=== PATIENT | female | born 1980 | race Caucasian/White ===

== ENCOUNTER 2021-09-29 16:23 | Inpatient (IN) | payer OTHER ==
[~2021-09-29] VITALS: Ht 160 cm; Wt 125.8 kg
[2021-09-29] MEDS ORDERED: ADENOSINE 6 MG/2 ML VIAL. IV ONE (16:48)
--- NOTE | 2021-09-29 17:18 | RAD ---
AP chest. HISTORY: Tachycardia AP view was taken of the chest. Heart is normal in size. There is no pleural effusion. There are no c onfluent infiltrates. IMPRESSION: 1. No acute chest disease. Electronically signed by: Tato Wan MD (09/29/2021 5:15 PM) [id number]
[2021-09-29 17:23] LABS: BASO # 0.1 x10^3/uL (0.0-0.2); BASO % 1 % (0-3); EOS # 0.1 x10^3/uL (0.0-0.7); EOS % 1 % (0-3); HEMATOCRIT 45.6 % (36.0-47.0); HEMOGLOBIN 15.2 g/dL (12.0-15.5); LYMPH % 28 % (24-48); MEAN CORPUSCULAR HEMOGLOBIN 28 pg (25-35); MEAN CORPUSCULAR HGB CONC 33 g/dL (31-37); MEAN CORPUSCULAR VOLUME 85 fL (79-100); MONO # 0.9 x10^3/uL (0.0-1.1); MONO % 9 % (0-9); NEUT # 6.8 x10^3/uL (1.8-7.7); NEUT % 62 % (31-73); PLATELET COUNT 268 x10^3/uL (140-400); RED BLOOD COUNT 5.35 x10^6/uL (3.50-5.40); RED CELL DISTRIBUTION WIDTH 13.7 % (11.5-14.5); WHITE BLOOD COUNT 10.9 x10^3/uL (4.0-11.0)
[2021-09-29 17:24] LABS: CALCIUM 9.3 mg/dL (8.5-10.1); GFR 60.5; POTASSIUM 3.6 mmol/L (3.5-5.1)
[2021-09-29 17:30] LABS: ALBUMIN 4.3 g/dL (3.4-5.0); MAGNESIUM 1.9 mg/dL (1.8-2.4); TOTAL BILIRUBIN 0.8 mg/dL (0.2-1.0); TOTAL PROTEIN 8.5 g/dL (6.4-8.2)
[2021-09-29] MEDS ORDERED: NORMAL SALINE IV ONE (17:30)
[2021-09-29] MEDS ORDERED: PROCAINAMIDE HCL IV ONE (17:30)
[2021-09-29 17:52] LABS: BARBITURATES NEG (NEG); BENZODIAZEPINES NEG (NEG); CANNABINOIDS POS (NEG); COCAINE NEG (NEG); METHADONE NEG (NEG); OPIATES NEG (NEG); PHENCYCLIDINE NEG (NEG)
[2021-09-29 17:55] LABS: BACTERIA,URINE MODERATE /HPF (0-FEW); RBC,URINE 0 /HPF (0-2); WBC,URINE OCC /HPF (0-4)
[2021-09-29] MEDS ORDERED: NS IV PRN (18:00)
[2021-09-29] MEDS ORDERED: PROCAINAMIDE IV PRN (18:00)
[2021-09-29 18:02] LABS: AMPHETAMINE/METHAMPHETAMINE NEG (NEG)
--- NOTE | 2021-09-29 18:55 | PHYS DOC ---
Past Medical History Past Medical History: No Pertinent History Additional Past Medical Histor: insomnia Past Surgical History: Other Additional Past Surgical Histo: D&C Smoking Status: Former Smoker Alcohol Use: None Drug Use: None General Adult EDM: Chief Complaint: RAPID HEART RATE HPI: HPI: Patient is a 41-year-old female who presents to the emergency department complaining of a rapid heart rate for the past 2 months. Patient states when she told her today he checked her pulse and it was very rapid, patient seen her primary care physician Dr. Peters who told her to come to the emergency department for evaluation of her rapid heart rate, treatment, admission and evaluation by a differential specialist. Patient denies chest pains, denies shortness of breath, denies chest or nasal congestion, denies nausea, vomiting, diarrhea, denies diaphoretic episodes, states she does not smoke, does not drink alcohol, denies illicit drug use Review of Systems: Review of Systems: 14 body systems of review of systems have been reviewed. See HPI for pertinent positives and negative responses, otherwise all other systems are negative, nonpertinent or noncontributory. Constitutional: Negative except as outlined in HPI above. Skin: Negative except as outlined in HPI above. Eyes: Negative except as outlined in HPI above. HENT: Negative except as outlined in HPI above. Respiratory: Negative except as outlined in HPI above. Cardiovascular: Negative except as outlined in HPI above. GI: Negative except as outlined in HPI above. : Negative except as outlined in HPI above. Musculoskeletal: Negative except as outlined in HPI above. Integument: Negative except as outlined in HPI above. Neurologic: Negative except as outlined in HPI above. Endocrine: Negative except as outlined in HPI above. Lymphatic: Negative except as outlined in HPI above. Psychiatric: Negative except as outlined in HPI above. Heart Score: C/O Chest Pain: No Risk Factors: Risk Factors: DM, Current or recent (<one month) smoker, HTN, HLP, family history of CAD, obesity. Risk Scores: Score 0 - 3: 2.5% MACE over next 6 weeks - Discharge Home Score 4 - 6: 20.3% MACE over next 6 weeks - Admit for Clinical Observation Score 7 - 10: 72.7% MACE over next 6 weeks - Early Invasive Strategies Current Medications: Current Medications Medications (Trade) Dose Ordered Sig/Rosa Elena Start Time Stop Time Status Last Admin Dose Admin Adenosine (Adenocard) 6 mg STK-MED ONCE 09/29/21 16:48 09/29/21 16:49 DC Diltiazem HCl (Cardizem Iv Push) 10 mg 1X ONCE 09/29/21 17:30 09/29/21 17:31 DC 09/29/21 17:03 10 MG Procainamide HCl 1250 mg/Sodium Chloride 112.5 ml @ 225 mls/hr 1X ONCE 09/29/21 17:30 09/29/21 17:59 DC 09/29/21 17:45 225 MLS/HR Procainamide HCl 2000 mg/Sodium Chloride 270 ml @ 7.5 mls/hr CONT PRN 09/29/21 18:00 Allergies: Allergies: Allergies Coded Allergies Type Severity Reaction Last Updated Verified No Known Drug Allergies 08/31/13 No Physical Exam: PE: Constitutional: Well developed, well nourished, no acute distress, non-toxic appearance. 41-year-old female in no apparent distress. HENT: Normocephalic, atraumatic. Eyes: Conjunctiva normal, no discharge. Neck: Normal range of motion, no stridor. Cardiovascular: No cyanosis appreciated, distal cap refill less than 2 seconds. Rapid heart rate for auscultation. Lungs & Thorax: Patient is in no respiratory distress, no audible adventitious lung sounds appreciated. Lung sounds clear to auscultation all lung perez. Abdomen: Nontender, no abnormalities noted. Skin: Warm, dry, no erythema, no rash. Back: No tenderness, no deformities. Extremities: No tenderness, no cyanosis, no clubbing, ROM intact, no edema. Neurologic: Alert and oriented X 3, normal motor function, normal sensory function, no focal deficits noted. Psychologic: Affect normal, judgement normal, mood normal. Current Patient Data: Labs: Laboratory Tests Test 09/29/21 16:50 09/29/21 17:30 09/29/21 17:36 White Blood Count 10.9 x10^3/uL (4.0-11.0) Red Blood Count 5.35 x10^6/uL (3.50-5.40) Hemoglobin 15.2 g/dL (12.0-15.5) Hematocrit 45.6 % (36.0-47.0) Mean Corpuscular Volume 85 fL (79-100) Mean Corpuscular Hemoglobin 28 pg (25-35) Mean Corpuscular Hemoglobin Concent 33 g/dL (31-37) Red Cell Distribution Width 13.7 % (11.5-14.5) Platelet Count 268 x10^3/uL (140-400) Neutrophils (%) (Auto) 62 % (31-73) Lymphocytes (%) (Auto) 28 % (24-48) Monocytes (%) (Auto) 9 % (0-9) Eosinophils (%) (Auto) 1 % (0-3) Basophils (%) (Auto) 1 % (0-3) Neutrophils # (Auto) 6.8 x10^3/uL (1.8-7.7) Lymphocytes # (Auto) 3.0 x10^3/uL (1.0-4.8) Monocytes # (Auto) 0.9 x10^3/uL (0.0-1.1) Eosinophils # (Auto) 0.1 x10^3/uL (0.0-0.7) Basophils # (Auto) 0.1 x10^3/uL (0.0-0.2) Sodium Level 136 mmol/L (136-145) Potassium Level 3.6 mmol/L (3.5-5.1) Chloride Level 100 mmol/L (98-107) Carbon Dioxide Level 26 mmol/L (21-32) Anion Gap 10 (6-14) Blood Urea Nitrogen 16 mg/dL (7-20) Creatinine 1.0 mg/dL (0.6-1.0) Estimated GFR (Cockcroft-Gault) 60.5 BUN/Creatinine Ratio 16 (6-20) Glucose Level 110 mg/dL (70-99) H Calcium Level 9.3 mg/dL (8.5-10.1) Magnesium Level 1.9 mg/dL (1.8-2.4) Total Bilirubin 0.8 mg/dL (0.2-1.0) Aspartate Amino Transferase (AST) 39 U/L (15-37) H Alanine Aminotransferase (ALT) 98 U/L (14-59) H Alkaline Phosphatase 69 U/L (46-116) Troponin I High Sensitivity 5 ng/L (4-50) WA-Guk-C-Type Natriuretic Peptide 96 pg/mL (0-124) Total Protein 8.5 g/dL (6.4-8.2) H Albumin 4.3 g/dL (3.4-5.0) Albumin/Globulin Ratio 1.0 (1.0-1.7) Thyroid Stimulating Hormone (TSH) 3.082 uIU/mL (0.358-3.74) Urine Collection Type Unknown Urine Color (Auto) Colorless Urine Turbidity Clear Urine pH (Auto) 6.0 (<5.0-8.0) Urine Specific [place] 1.006 (1.000-1.030) Urine Protein (Auto) Negative mg/dL (Negative) Urine Glucose (Auto)(UA) Negative mg/dL (Negative) Urine Ketones (Auto) Negative mg/dL (Negative) Urine Blood (Auto) Negative (Negative) Urine Nitrite Negative (Negative) Urine Bilirubin (Auto) Negative (Negative) Urine Urobilinogen (Auto) Normal mg/dL (Normal) Urine Leukocyte Esterase (Auto) Negative (Negative) Urine RBC 0 /HPF (0-2) Urine WBC Occ /HPF (0-4) Urine Squamous Epithelial Cells Many /LPF Urine Bacteria Moderate /HPF (0-FEW) Urine Opiates Screen Neg (NEG) Urine Methadone Screen Neg (NEG) Urine Barbiturates Neg (NEG) Urine Phencyclidine Screen Neg (NEG) Urine Amphetamine/Methamphetamine Neg (NEG) Urine Benzodiazepines Screen Neg (NEG) Urine Cocaine Screen Neg (NEG) Urine Cannabinoids Screen Pos (NEG) Urine Ethyl Alcohol Neg (NEG) POC Urine HCG, Qualitative Hcg negative (Negative) Laboratory Tests 09/29/21 16:50 Laboratory Tests 09/29/21 16:50 Vital Signs: Vital Signs Date Time Temp Pulse Resp B/P (MAP) Pulse Ox O2 Delivery O2 Flow Rate FiO2 09/29/21 17:26 168 147/103 (118) 96 Room Air 09/29/21 16:34 98.7 20 98.7 EKG: EKG: EKG performed at 1641 by ED nursing staff shows a supraventricular tachycardia, heart rate 172 bpm, QTc interval 0.495, no acute STEMI, EKG interpreted by ED attending physician Dr. Herrera. Radiology/Procedures: Radiology/Procedures: REASON: Tachycardia PROCEDURE: CHEST AP ONLY AP chest. HISTORY: Tachycardia AP view was taken of the chest. Heart is normal in size. There is no pleural effusion. There are no confluent infiltrates. IMPRESSION: 1. No acute chest disease. Electronically signed by: Tato Wan MD (09/29/2021 5:15 PM) [id number] Course & Med Decision Making: Course & Med Decision Making Pertinent Labs and Imaging studies reviewed. (See chart for details) 41-year-old female, vital signs reviewed, presents emerged department concerning rapid heart rate for the past 2 months. Physical examination concerning for rapid heart rate for auscultation of heart sounds. Otherwise patient is in no distress, and is unremarkable. Will order EKG, chest x-ray, CBC, CMP, urinalysis assay, urine drug screen, high-sensitivity troponin I, NT proBNP, urine test. Magnesium level. EKG concerning for supraventricular tachycardia, discussed patient case and presentation with ED attending physician Dr. Herrera who recommended procainamide bolus and lieu of adenosine to related to symptoms for 2 months. Procainamide bolus has been ordered. Patient's labs are unremarkable, heart rate has reduced down to 150 bpm, called and presented ED work-up and patient case to differential specialist Dr. Bolanos who reviewed patient's EKG, recommended stopping the procainamide and starting Cardizem drip. Procainamide stopped, Cardizem maintenance drip ordered. Called and discussed patient case and ED work-up along with Dr. Bolanos recommendations with patient's primary care physician Dr. Peters who agrees patient meets criteria for admission on telemetry unit, Dr. Peters requested patient's home medications to be ordered. Patient is currently awaiting telemetry unit bed, remains in no apparent distress at time of ED admission to telemetry unit. Prakash Disclaimer: Prakash Disclaimer: This electronic medical record was generated, in whole or in part, using a voice recognition dictation system. Departure Departure Impression: Primary Impression: PSVT (paroxysmal supraventricular tachycardia) Additional Impression: Heart palpitations Disposition: ADMITTED INPATIENT Admitting Physician: Oleksandr Peters (Admit to telemetry unit, consult cardiology.) Condition: GUARDED Referrals: OLEKSANDR PETERS MD (PCP) DAVEY BARROS APRN Sep 29, 2021 18:55
[2021-09-29] MEDS ORDERED: ACETAMINOPHEN 325 MG TABLET. PO PRN (19:00)
[2021-09-29] MEDS ORDERED: ONDANSETRON PF 4 MG/2 ML VIAL. IVP PRN (19:00)
[2021-09-29 21:00] VITALS: BP 143/87
[2021-09-29] MEDS ORDERED: LORA-434 PO ×2 (21:08)
[2021-09-29] MEDS ORDERED: TEMA30CA PO (21:08)
[2021-09-29] MEDS ORDERED: TRAZ150T49 PO (21:08)
[2021-09-29 21:30] VITALS: BP 145/106
--- NOTE | 2021-09-29 21:42 | EKG ---
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
[2021-09-29 22:00] VITALS: BP 140/87
[2021-09-29] MEDS ORDERED: METOPROLOL IV PUSH 5 MG/5 ML VIAL. IVP ONE (22:00)
[2021-09-29] MEDS: TEMAZEPAM 15 MG CAPSULE PO PRN (22:11)
[2021-09-29] MEDS: traZODone 100 MG TABLET. PO SCH (22:12)
[2021-09-29 22:40] VITALS: BP 139/85
[2021-09-29 23:10] VITALS: BP 130/75
[2021-09-29 23:30] VITALS: BP 113/71
[2021-09-30] VITALS (14 sets, daily range): BP systolic 100–139; BP diastolic 57–95
--- NOTE | 2021-09-30 06:08 | HP ---
DATE OF SERVICE: 09/29/2021 ADMIT DATE: 09/29/2021 CHIEF COMPLAINT: Tachycardia. HISTORY OF PRESENT ILLNESS: A 41-year-old white female who came to our office on the day of admission as a walk-in with a rapid heart rate that she said she had had for about 1 month. She denied any particular symptoms except for mild weakness and specifically denied chest pain, sweating, weight loss, fever, chills, street drug use or any new medications. Heart rate was ____ about 170-180 and regular. She was transferred to the ER for further evaluation and medical treatment after deciding to go to [facility] versus another hospital. She has never had any cardiac or hypertensive problems in the past. PAST MEDICAL HISTORY: MEDICATIONS: She takes temazepam, lorazepam and trazodone as her meds. No new medications. ALLERGIES: No allergies are known. PAST SURGICAL HISTORY AND MEDICAL ILLNESSES: She has had no major surgery or medical illnesses. She has a history of bipolar disorder, but this has been stable recently and not medicated as she had bad experiences with psychogenic meds. SOCIAL HISTORY: Nonsmoker, nondrinker, , employed. FAMILY HISTORY: Unremarkable. REVIEW OF SYSTEMS: Denies weight loss, tremor, vomiting, diarrhea or other complaints. OBJECTIVE: ENT: All within normal limits. No proptosis is noted. NECK: No thyromegaly, JVD, masses or bruits. CARDIOVASCULAR: Heart rate is 170-180, feels regular. No irregular beats were noted. No friction rub. ABDOMEN: Obese, soft, benign, nontender. EXTREMITIES: Good pedal and radial pulses. No edema. No joint or skin lesions. NEUROLOGIC: No focal findings. No tremor or mental status changes. ASSESSMENT: Persistent tachycardia that could be supraventricular tachycardia or atrial fibrillation with rapid response. Feels more regular and perhaps reentrant tachycardia of some sort. Recent laboratory studies including thyroid function were all within normal limits and the etiology of this is not clear. PLAN: Echo, screening labs certainly medication such as IV diltiazem possibly ____ cardiac consultation. She may need cardioversion. Attempts ____ may need to be anticoagulated depending on the echo and the nature of the tachycardia. NATHANIEL/RASHAAD DR: Starla TID: [id number]
--- NOTE | 2021-09-30 07:21 | EKG ---
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
--- NOTE | 2021-09-30 08:11 | PDOC ---
Provider Note Date of Service: DATE: 09/30/21 TIME: 08:10 Provider Note converted to nsr after iv dilt- feels fine, no new sxs- labs all ok, re source of presumed SVT- wilber do echo, po diltiazem now , follow Justifications for Admission Other Justification OLEKSANDR PETERS MD Sep 30, 2021 08:11
--- NOTE | 2021-09-30 10:18 | PDOC2 ---
JULIO FRANCO POST SPLITTER 09/30/21 1018: CARDIAC CONSULT DATE OF CONSULT Date of Consult DATE: 09/30/21 TIME: 10:05 REASON FOR CONSULT Reason for Consult: Palpitations, PSVT REFERRING PHYSICIAN Referring Physician: Colin SOURCE Source: Chart review, Patient HISTORY OF PRESENT ILLNESS HISTORY OF PRESENT ILLNESS This is a pleasant 41 yo female admitted for complains of palpitations. Upon admission she was noted with SVT and it was atrial flutter. She has been going in and out of it. At home in the last 2 months she has been having intermittent bouts of palpitations and stayed yesterday and was noted with HR of 180. No nausea or vomiting, chest pain or SOA. She snores at night and gets CASTANEDA in morning but no daytime domnolence. She takes restoril and trazodone for sleep and RLS. No recent falls or injury. She is positive for marijuana as she had gummies from [employer] 3 weeks. No fever or chills and no recent infection. She has gained 15 pounds in the last 2 months and has not been checked for JORGE. No hx of CAD, arrhythmias and VTE. PAST MEDICAL HISTORY CENTRAL NERVOUS SYSTEM: Other (RLS) GI: GERD Psych: Other (insomnia) PAST SURGICAL HISTORY Past Surgical History: Cholecystectomy FAMILY HISTORY Family History: Heart Disease (grandparents both had pacemaker) SOCIAL HISTORY Smoke: Quit (07/2021) ALCOHOL: none Drugs: None Lives: with Family CURRENT MEDICATIONS CURRENT MEDICATIONS Current Medications Medications (Trade) Dose Ordered Sig/Rosa Elena Route PRN Reason Start Time Stop Time Status Last Admin Dose Admin Diltiazem HCl (Cardizem Iv Push) 10 mg 1X ONCE IVP 09/29/21 17:30 09/29/21 17:31 DC 09/29/21 17:03 Procainamide HCl 2000 mg/Sodium Chloride 270 ml @ 7.5 mls/hr CONT PRN IV SEE I/O RECORD 09/29/21 18:00 09/29/21 19:04 DC 09/29/21 18:40 Procainamide HCl 1250 mg/Sodium Chloride 112.5 ml @ 225 mls/hr 1X ONCE IV 09/29/21 17:30 09/29/21 17:59 DC 09/29/21 17:45 Diltiazem HCl 125 mg/Sodium Chloride 125 ml @ 5 mls/hr CONT PRN IV PER PROTOCOL 09/29/21 19:00 09/30/21 08:10 DC 09/30/21 02:57 Trazodone HCl (Desyrel) 150 mg QHS PO 09/29/21 21:00 09/29/21 22:12 Lorazepam (Ativan) 1 mg PRN 1X ONCE PO 09/29/21 19:00 09/29/21 19:08 DC 09/29/21 19:36 Temazepam (Restoril) 30 mg PRN QHS PRN PO INSOMNIA 09/29/21 19:00 09/29/21 22:11 Enoxaparin Sodium (Lovenox 120mg Syringe) 120 mg 1X ONCE SQ 09/29/21 22:00 09/29/21 22:01 DC 09/29/21 22:12 Metoprolol Tartrate (Lopressor Vial) 5 mg 1X ONCE IVP 09/29/21 22:00 09/29/21 22:01 DC 09/29/21 22:11 ALLERGIES ALLERGIES: Coded Allergies: No Known Drug Allergies (Unverified , 08/31/13) ROS Review of System 14 point ROS evaluated with pertinent positives noted per HPI PHYSICAL EXAM General: Alert, Oriented X3, Cooperative, No acute distress HEENT: Atraumatic, Mucous membr. moist/pink Lungs: Clear to auscultation, Normal air movement Heart: Regular rate (SR), Normal S1, Normal S2, No murmurs Abdomen: Soft, No tenderness Extremities: No cyanosis, No edema Skin: No breakdown, No significant lesion Neuro: Normal speech, Sensation intact Psych/Mental Status: Mental status NL, Mood NL MUSCULOSKELETAL: Full range of motion without pain VITALS/I&O VITALS/I&O: Vital Signs Date Time Temp Pulse Resp B/P (MAP) Pulse Ox O2 Delivery O2 Flow Rate FiO2 09/30/21 07:00 97.6 128 18 126/74 (91) 96 Room Air 97.6 I & O 09/29/21 09/29/21 09/30/21 15:00 23:00 07:00 Intake Total 0 ml 255 ml Output Total 0 ml 300 ml Balance 0 ml -45 ml LABS Lab: Laboratory Tests Test 09/29/21 16:50 09/29/21 17:30 09/29/21 17:36 White Blood Count 10.9 x10^3/uL (4.0-11.0) Red Blood Count 5.35 x10^6/uL (3.50-5.40) Hemoglobin 15.2 g/dL (12.0-15.5) Hematocrit 45.6 % (36.0-47.0) Mean Corpuscular Volume 85 fL (79-100) Mean Corpuscular Hemoglobin 28 pg (25-35) Mean Corpuscular Hemoglobin Concent 33 g/dL (31-37) Red Cell Distribution Width 13.7 % (11.5-14.5) Platelet Count 268 x10^3/uL (140-400) Neutrophils (%) (Auto) 62 % (31-73) Lymphocytes (%) (Auto) 28 % (24-48) Monocytes (%) (Auto) 9 % (0-9) Eosinophils (%) (Auto) 1 % (0-3) Basophils (%) (Auto) 1 % (0-3) Neutrophils # (Auto) 6.8 x10^3/uL (1.8-7.7) Lymphocytes # (Auto) 3.0 x10^3/uL (1.0-4.8) Monocytes # (Auto) 0.9 x10^3/uL (0.0-1.1) Eosinophils # (Auto) 0.1 x10^3/uL (0.0-0.7) Basophils # (Auto) 0.1 x10^3/uL (0.0-0.2) Sodium Level 136 mmol/L (136-145) Potassium Level 3.6 mmol/L (3.5-5.1) Chloride Level 100 mmol/L (98-107) Carbon Dioxide Level 26 mmol/L (21-32) Anion Gap 10 (6-14) Blood Urea Nitrogen 16 mg/dL (7-20) Creatinine 1.0 mg/dL (0.6-1.0) Estimated GFR (Cockcroft-Gault) 60.5 BUN/Creatinine Ratio 16 (6-20) Glucose Level 110 mg/dL (70-99) H Calcium Level 9.3 mg/dL (8.5-10.1) Magnesium Level 1.9 mg/dL (1.8-2.4) Total Bilirubin 0.8 mg/dL (0.2-1.0) Aspartate Amino Transferase (AST) 39 U/L (15-37) H Alanine Aminotransferase (ALT) 98 U/L (14-59) H Alkaline Phosphatase 69 U/L (46-116) Troponin I High Sensitivity 5 ng/L (4-50) PI-Hps-J-Type Natriuretic Peptide 96 pg/mL (0-124) Total Protein 8.5 g/dL (6.4-8.2) H Albumin 4.3 g/dL (3.4-5.0) Albumin/Globulin Ratio 1.0 (1.0-1.7) Thyroid Stimulating Hormone (TSH) 3.082 uIU/mL (0.358-3.74) Urine Collection Type Unknown Urine Color (Auto) Colorless Urine Turbidity Clear Urine pH (Auto) 6.0 (<5.0-8.0) Urine Specific [place] 1.006 (1.000-1.030) Urine Protein (Auto) Negative mg/dL (Negative) Urine Glucose (Auto)(UA) Negative mg/dL (Negative) Urine Ketones (Auto) Negative mg/dL (Negative) Urine Blood (Auto) Negative (Negative) Urine Nitrite Negative (Negative) Urine Bilirubin (Auto) Negative (Negative) Urine Urobilinogen (Auto) Normal mg/dL (Normal) Urine Leukocyte Esterase (Auto) Negative (Negative) Urine RBC 0 /HPF (0-2) Urine WBC Occ /HPF (0-4) Urine Squamous Epithelial Cells Many /LPF Urine Bacteria Moderate /HPF (0-FEW) Urine Opiates Screen Neg (NEG) Urine Methadone Screen Neg (NEG) Urine Barbiturates Neg (NEG) Urine Phencyclidine Screen Neg (NEG) Urine Amphetamine/Methamphetamine Neg (NEG) Urine Benzodiazepines Screen Neg (NEG) Urine Cocaine Screen Neg (NEG) Urine Cannabinoids Screen Pos (NEG) Urine Ethyl Alcohol Neg (NEG) POC Urine HCG, Qualitative Hcg negative (Negative) Laboratory Tests 09/29/21 16:50 Laboratory Tests 09/29/21 16:50 ASSESSMENT/PLAN ASSESSMENT/PLAN 1. PAflutter with RVR: has had intermittent conversion to SR. Presently SR with cardizem drip 2. Suspect JORGE 3. Morbid obesity: has been gaining wt 4. suspect hepatic steatosis 5. Positive for marijuana: had gummies recently from [place]. 6. 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 on ASA for stroke prevention. Change cardizem to PO 2. Await TTE and if unremarkable then will consider for antiarrhythmic. MCOT 3. FLP 4. Will need outpt JORGE w/u 5. Wt loss 6. Follow up with Dr. Worthy November 14Wednesday at 1 PM 7. future outpt stress test JOSE ANTONIO WORTHY MD 09/30/21 3072: CARDIAC CONSULT ASSESSMENT/PLAN ASSESSMENT/PLAN Patient seen and examined. Agree with above nurse practitioner note. Echocardiogram pending We will plan for initiation of amiodarone and anticoagulation given recurrent tachyarrhythmia. Supportive care for now. JULIO FRANCO POST SPLITTER Sep 30, 2021 10:18 JOSE ANTONIO WORTHY MD Sep 30, 2021 17:59
[2021-09-30] MEDS ORDERED: ASPIRIN ENTERIC COATED 325 MG TABLET.DR. PO ONE (10:30)
--- NOTE | 2021-09-30 12:10 | EKG ---
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
[2021-09-30] MEDS ORDERED: AMIODARONE 150 MG in IV DEXTROSE 5% 100ML 100 ML IV ONE (12:45)
[2021-09-30] MEDS: APIXABAN 5 MG TABLET. PO SCH ×2 (12:53→20:06)
[2021-09-30] MEDS: AMIODARONE 450 MG in IV DEXTROSE 5% 250 ML IV PRN ×2 (12:54→20:07)
[2021-09-30] MEDS: traZODone 100 MG TABLET. PO SCH (20:06)
[2021-09-30] MEDS: TEMAZEPAM 15 MG CAPSULE PO PRN (20:06)
[2021-10-01 03:59] VITALS: BP 122/67
[2021-10-01 07:00] VITALS: BP 141/73
[2021-10-01] MEDS ORDERED: ASPIRIN ENTERIC COATED 325 MG TABLET.DR. PO SCH (08:00)
--- NOTE | 2021-10-01 08:30 | PDOC ---
Provider Note Date of Service: DATE: 10/01/21 TIME: 08:29 Provider Note back in nsr after amio started- labs ok, echo pending- will get andrés study set as OP- follow as po amio starts, rest same Justifications for Admission Other Justification OLEKSANDR PETERS MD Oct 01, 2021 08:30
[2021-10-01] MEDS: APIXABAN 5 MG TABLET. PO SCH ×2 (08:39→20:57)
[2021-10-01] MEDS ORDERED: PERFLUTREN PROTEIN-A MICROSPHR 0.22 MG/ML 3 ML VIAL. IV ONE ×2 (10:45→10:53)
[2021-10-01 11:00] VITALS: BP 149/76
--- NOTE | 2021-10-01 12:58 | PDOC ---
JULIO FRANCO FINGERPRINTER 10/01/21 1257: CARDIO Progress Notes Date and Time Date of Service 10/01/2021 Time of Evaluation 1230 Subjective Subjective: No Chest Pain, No shortness of breath, No Palpitations Vitals Vitals Vital Signs Date Time Temp Pulse Resp B/P (MAP) Pulse Ox O2 Delivery O2 Flow Rate FiO2 10/01/21 11:00 98.4 85 18 149/76 (100) 97 Room Air 98.4 Weight Weight [ ] Input and Output Intake and Output Intake and Output 10/01/21 07:00 Intake Total 600 ml Balance 600 ml Intake Oral 400 ml IV Total 200 ml # Voids 1 Microbiology Micro Microbiology 09/29/21 Urine Culture - Final, Complete Physical Exam HEENT: Neck Supple W Full Motion Chest: Symmetric LUNGS: Clear to Auscultation Heart: S1S2, irregularly irregular (Atrial flutter) Abdomen: Soft N/T Extremities: No Calf Tenderness Neurology: alert, oriented, follow commands Assessment Assessment 1. PAflutter with RVR: intermittent episodes presently on atrial flutter with 90-140 range 2. Suspect JORGE 3. Morbid obesity: has been gaining wt 4. suspect hepatic steatosis 5. Positive for marijuana: had gummies recently from [place]. 6. 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 Change cardizme to metoprolol. Check BMP and Mg and will consider x1 dose of digoxin. Continue amiodarone. 200 mg po bid x1 week the daily 2. Await TTE. MCOT. FLP 3. FLP 4. Will need outpt JORGE w/u 5. Wt loss 6. Follow up with Dr. Worthy November 14Wednesday at 1 PM 7. future outpt stress test and possible referral to EP Justicifation of Admission Dx: Justifications for Admission: Justification of Admission Dx: Yes JOSE ANTONIO WORTHY MD 10/01/21 2210: CARDIO Progress Notes Plan Plan Pt. seen and examined. Agree with above BIOMEDICAL ANALYTICAL SCIENTIST note. Patient continues to have intermittent afib. Not a suitable candidate for CVN given intermittent nature of afib. Will continue load with amio. Continue anticoagulation. Supportive care. Likely DC in a.m. Thanks JULIO FRANCO APRN Oct 01, 2021 12:57 JOSE ANTONIO WORTHY MD Oct 01, 2021 22:10
[2021-10-01] MEDS ORDERED: DIGOXIN IV 500 MCG/2 ML AMPUL. IV ONE (13:00)
[2021-10-01 13:52] LABS: CALCIUM 9.1 mg/dL (8.5-10.1); GFR 60.5; MAGNESIUM 1.9 mg/dL (1.8-2.4); POTASSIUM 3.6 mmol/L (3.5-5.1)
--- NOTE | 2021-10-01 14:56 | NUR ---
SS following for discharge planning. SS reviewed pt chart and discussed with pt RN. Pt is from home with spouse and is currently on room air. Cardiology following. Pt on PO Amiodarone. Discharge plan is currently to home when medically ready for discharge. SS will continue to follow for discharge planning.
[2021-10-01] MEDS: AMIODARONE HCL 200 MG TABLET. PO SCH ×2 (14:59→20:57)
[2021-10-01 15:00] VITALS: BP 137/95
--- NOTE | 2021-10-01 16:30 | CARD ---
MR#: [id number] Date of Study: 10/01/2021 Ordering Physician: OLEKSANDR PETERS, Referring Physician: Marcelina HOSKINS: Onel Balbuena [facility] APPROVED REPORT EXAM: Two-dimensional and M-mode echocardiogram with Doppler and color Doppler. Other Information Quality : FairHR: 115bpm Rhythm : Atrial fibrillation which converted to NSRTechnically limited study due to body habitus. INDICATION Arrhythmia Atrial Fibrillation Echo Enhancing Agent Indication: Endocardial border delineation Agent/Amount Used: Optison (small bore I.V. made contrast imaging unusable. 2mL RISK FACTORS Obesity 2D DIMENSIONS Left Atrium(2D)3.4 (1.6-4.0cm)IVSd1.0 (0.7-1.1cm) Aortic Root(2D)3.3 (2.0-3.7cm)LVDd5.5 (3.9-5.9cm) LVOT Diameter1.9 (1.8-2.4cm)PWd0.9 (0.7-1.1cm) LA Gvggci79 (18-58mL)LVDs3.2 (2.5-4.0cm) FS (%) 40.6 %SV102.4 ml LVEF(%)70.8 (>50%) Aortic Valve AoV Peak Kenji.171.1cm/sAoV VTI26.6cm AO Peak GR.11.7mmHgLVOT Peak Kenji.120.3cm/s LVOT VTI 18.24cmAO Mean GR.7mmHg FRANK (VMAX)1.11rt2UCS (VTI)1.92cm2 Mitral Valve MV E Nmaezort38.4cm/sMV DECEL [id number] MV A Figkcnps49.5cm/sMV E Mean Gr.3mmHg MV [id number]/A Ratio1.3 MVA (PHT)3.33cm2 TDI E/Lateral E'5.6E/Medial E'12.0 Pulmonary Valve PV Peak Tlywwawt782.3cm/sPV Peak Grad.8mmHg Tricuspid Valve TR P. Pfgnbdnw525ea/sTR Peak Gr.13mmHg Pulmonary Vein S1 Obsznwbj94.8cm/sD2 Jvlcrahr12.2cm/s LEFT VENTRICLE The left ventricle is normal size. There is normal left ventricular wall thickness. The left ventricu lar systolic function is normal . The ejection fraction is estimated at 60-65%. There is normal LV se gmental wall motion. No left ventricle thrombus noted on this study. There is no ventricular septal d efect visualized. There is no left ventricular aneurysm. There is no mass noted in the left ventricle . RIGHT VENTRICLE The right ventricle is normal size. There is normal right ventricular wall thickness. The right ventr icular systolic function is normal. ATRIA The left atrium is borderline dilated. The right atrium size is normal. The interatrial septum is int act with no evidence for an atrial septal defect or patent foramen ovale as noted on 2-D or Doppler i maging. AORTIC VALVE The aortic valve is not well seen. Doppler and Color Flow revealed no significant aortic regurgitatio n. There is no significant aortic valvular stenosis. There is no aortic valvular vegetation. MITRAL VALVE The mitral valve is normal in structure and function. There is no evidence of mitral valve prolapse. There is no mitral valve stenosis. Doppler and Color Flow revealed no mitral valve regurgitation note d. TRICUSPID VALVE The tricuspid valve is normal in structure and function. Doppler and Color Flow revealed trace tricus pid regurgitation. There is no tricuspid valve prolapse or vegetation. There is no tricuspid valve st enosis. PULMONIC VALVE The pulmonic valve is not well seen. Doppler and Color Flow revealed no pulmonic valvular regurgitati on. There is no pulmonic valvular stenosis. GREAT VESSELS The aortic root is normal in size. The ascending aorta is normal in size. The pulmonary artery is nor mal. The IVC is normal in size and collapses >50% with inspiration. PERICARDIAL EFFUSION There is no pleural effusion. There is no evidence of significant pericardial effusion. Critical Notification Critical Value: No <Conclusion> The left ventricular systolic function is normal . The ejection fraction is estimated at 60-65%. There is normal LV segmental wall motion. Trace tricuspid regurgitation. There is no evidence of significant pericardial effusion. Signed by : Satnam Peters, Electronically Approved : 10/01/2021 16:29:27
[2021-10-01] MEDS ORDERED: AMIODARONE 300 MG in IV DEXTROSE 5% 100ML 100 ML IV ONE (16:45)
[2021-10-01] MEDS ORDERED: METOPROLOL IV PUSH 5 MG/5 ML VIAL. IVP ONE (16:45)
[2021-10-01] MEDS ORDERED: AMIODARONE 150 MG/3 ML VIAL IVP ONE (16:45)
[2021-10-01 19:00] VITALS: BP 131/71
--- NOTE | 2021-10-01 19:25 | NUR ---
Pt in bed assessment completed vss poc explained pt denied pain at this time family at bedside. Will resume care and continue to monitor pt.
[2021-10-01] MEDS: METOPROLOL TART IMMED RELEASE 50 MG TABLET. PO SCH (20:58)
[2021-10-01] MEDS: traZODone 100 MG TABLET. PO SCH (20:58)
[2021-10-01] MEDS: TEMAZEPAM 15 MG CAPSULE PO PRN (21:00)
[2021-10-01 22:52] VITALS: BP 100/55
[2021-10-02 03:00] VITALS: BP 111/73
[2021-10-02 07:00] VITALS: BP 138/72
--- NOTE | 2021-10-02 08:04 | PDOC ---
Provider Note Date of Service: DATE: 10/02/21 TIME: 08:04 Provider Note [id number] Justifications for Admission Other Justification OLEKSANDR PETERS MD Oct 02, 2021 08:04
[2021-10-02 08:40] VITALS: BP 111/73
[2021-10-02] MEDS: AMIODARONE HCL 200 MG TABLET. PO SCH (08:40)
[2021-10-02] MEDS: METOPROLOL TART IMMED RELEASE 50 MG TABLET. PO SCH (08:40)
[2021-10-02] MEDS: APIXABAN 5 MG TABLET. PO SCH (08:40)
[2021-10-02] MEDS ORDERED: AMIO200T53 PO (10:12)
[2021-10-02] MEDS ORDERED: APIX5TAB PO (10:12)
[2021-10-02] MEDS ORDERED: METO50TA6 PO (10:13)
--- NOTE | 2021-10-02 16:18 | DS ---
DATE OF DISCHARGE: 10/02/2021 HOSPITAL SUMMARY: A 41-year-old white female admitted from the office with supraventricular tachycardia, rate of 180 for a duration of at least a few weeks. No previous cardiac history. LABORATORY STUDIES: CBC, chemistry profile, thyroid all within normal limits. Cholesterol 188, HDL 47, LDL 126. Urine drug screen showed only THC. Chest x-ray was clear. Echocardiogram was all within normal limits with no sign of cardiomyopathy or mitral valve stenosis. She initially converted on IV diltiazem but then presumed atrial flutter recurred and she was switched to IV amiodarone, followed by p.o. amiodarone and metoprolol for rate control. Eliquis was given as well. Her cardiac atrial thrombus. She remains in sinus rhythm at this time, is able to follow as an outpatient. FINAL DIAGNOSES: 1. Persistence supraventricular tachycardia, likely atrial flutter. 2. Suspected obstructive sleep apnea. OPERATIONS, PROCEDURES, AND COMPLICATIONS: None. CONSULTATION: Dr. East. DISPOSITION: She will take amiodarone 200 mg twice a day for 1 month and then once a day, metoprolol 50 mg twice a day. Rest directed by Dr. Bolanos as well as Eliquis 5 mg twice a day. Home meds remain the same. We will see her in the office in 2 weeks to try and arrange outpatient sleep testing and she will see Dr. Bolanos in 2 weeks for cardiac monitoring protocol. MARTA/[facility]NN/[facility] [place]: MARTA/thiago TID: [id number]
--- NOTE | 2021-10-03 19:16 | PDOC ---
CARDIOLOGY PROGRESS NOTE SUBJECTIVE: Late entry for 10/02/2021 Patient denies any current chest pain, dyspnea, orthopnea or PND. She remains in paroxysmal atrial fibrillation and currently is asymptomatic. She is accompanied by her at bedside today. She is looking forward to going home. OBJECTIVE: Vital Signs/I&O: Vital Signs Date Time Temp Pulse Resp B/P (MAP) Pulse Ox O2 Delivery O2 Flow Rate FiO2 10/02/21 08:40 76 111/73 10/02/21 08:00 Room Air 10/02/21 07:00 98.0 18 98 98.0 I & O 10/02/21 10/02/21 10/03/21 15:00 23:00 07:00 Intake Total 200 ml Balance 200 ml Objective: GEN.: No apparent distress. Alert and oriented. HEENT: Head is normocephalic, atraumatic NECK: Supple. LUNGS: Clear to auscultation. HEART: Irregularly irregular, S1, S2 present. Peripheral pulses intact ABDOMEN: Morbid obesity EXTREMITIES: Without any cyanosis. NEUROLOGIC: Normal speech, normal tone PSYCHIATRIC: Normal affect, normal mood. SKIN: No ulcerations CURRENT MEDICATIONS: Current cardiovascular medications reviewed including amiodarone and Eliquis DIAGNOSTIC TESTING: Laboratory studies and telemetry reviewed. ASSESSMENT: 1. Presumed obstructive sleep apnea 2. New onset atrial fibrillation 3. Hypertension 4. Dyslipidemia PLAN: 1. Continue amiodarone and Eliquis. Plan for outpatient event monitoring to determine burden and consideration of ablation versus cardioversion as needed. Supportive care for now. Discussed risks and benefits with the patient and family overall. Echocardiogram is otherwise unremarkable Late entry for 10/02/21 Patient will follow up in the office in 2 months Justicifation of Admission Dx: Justifications for Admission: Justification of Admission Dx: Yes JOSE ANTONIO WORTHY MD Oct 03, 2021 19:16
== END 2021-10-02 11:15 | disposition home or self-care (01) | DRG 309 ==
LOC: ER 16:23 → 6 SOUTH 18:40
PROVIDERS: ADMIT Family Medicine; ATTEND Family Medicine
DX: I47.1 Supraventricular tachycardia (principal); Z68.42 Body mass index [BMI] 45.0-49.9, adult; I48.92 Unspecified atrial flutter; E66.01 Morbid (severe) obesity due to excess calories; E78.5 Hyperlipidemia, unspecified; G25.81 Restless legs syndrome; G47.33 Obstructive sleep apnea (adult) (pediatric); I10 Essential (primary) hypertension; I48.0 Paroxysmal atrial fibrillation; Z87.891 Personal history of nicotine dependence; K21.9 Gastro-esophageal reflux disease without esophagitis
CPT/HCPCS: 36415; 71045; 80048; 80053; 80061; 80307; 81001; 81025; 83735; 83880; 84443; 84484; 85025; 87086; 93005; 93306; 96365; 96366; 96375; J0282; J1160; J1650; J2060; J2690; J3490; J7050; J7060; Q9956; 99285-25; C8929; G0378; J7030